=== PATIENT | male | born 1950 | race Caucasian/White ===

== ENCOUNTER 2018-12-18 20:30 | Outpatient (CLI) | payer MEDICARE, BC | END 2018-12-18 20:31 | disposition home or self-care (01) | LOC: SLEEPLAB 20:30 | PROVIDERS: ATTEND Internal Medicine Critical Care Medicine | DX: G47.33 Obstructive sleep apnea (adult) (pediatric) (principal); R53.83 Other fatigue; R06.83 Snoring; I48.91 Unspecified atrial fibrillation; I10 Essential (primary) hypertension | CPT/HCPCS: 95811 ==

== ENCOUNTER 2019-05-14 08:48 | Day surgery (SDC) | payer MEDICARE, BC ==
[2019-05-11 11:28] VITALS: BMI 39.5
[2019-05-14] MEDS ORDERED: ceFAZolin Sodium (SDC) 2 GM/100 ML BAG ONE (09:44)
[2019-05-14] MEDS ORDERED: PROPOFOL 200 MG/20 ML VIAL ONE (10:23)
[2019-05-14] MEDS ORDERED: Lidocaine 1% PF 5 ML VIAL ONE (10:23)
[2019-05-14] MEDS ORDERED: Ondansetron PF 4 MG/2 ML Vial ONE (10:23)
[2019-05-14] MEDS ORDERED: Glycopyrrolate 0.2 MG/ML 5 ML SYRINGE ONE (10:23)
[2019-05-14 10:31] LABS: #Basophils 0.1 thou/uL (0.0-0.2); #Eosinphils 0.4 thou/uL (0.0-0.7); #Lymphocytes 2.7 thou/uL (1.20-3.40); #Neutrophils 5.3 thou/uL (1.40-6.50); %Basophils 0.7 % (0.0-1.0); %Eosinophils 4.5 % (0.0-10.0); %Lymphocytes 28.4 % (21.0-51.0); %Monocytes 10.2 % (0.0-10.0); %Neutrophils 56.3 % (42.0-75.0); Hemoglobin 12.4 g/dL (14.0-18.0); Mean Corpuscular HGB CONC 32.4 g/dL (32.0-36.0); Mean Corpuscular Hemoglobin 27.8 pg (27.0-31.0); Mean Corpuscular Volume 85.9 fL (78.0-98.0); Mean Platelet Volume 8.6 fL (7.4-10.4); PTT 28.1 SEC (22.9-36.1); Platelet Count 304 thou/uL (130-400); RBC Distribution Width 14.1 % (11.5-14.5); Red Blood Cell (RBC) Count 4.45 mill/uL (4.70-6.10); White Blood Cell (WBC) Count 9.4 thou/uL (4.8-10.8)
[2019-05-14] MEDS ORDERED: Fentanyl 100 MCG/2 ML VIAL ONE (10:35)
[2019-05-14] MEDS ORDERED: Iothalamate Meglumine 60% 50 ML VIAL FS ONE (10:40)
[2019-05-14] MEDS ORDERED: Levofloxacin 500 mg/D5W 100 ml Premix Bag ONE (10:43)
[2019-05-14 10:46] LABS: Anion Gap 13 mmol/L (10-20); BUN (Urea Nitrogen) 21 mg/dL (8.4-25.7); Calc. Creatinine Clearance 73 mL/min (70-130); Calcium 9.6 mg/dL (7.8-10.44); Carbon Dioxide 21 mmol/L (23-31); Chloride 109 mmol/L (98-107); Estimated GFR-MDRD 43; Glucose 93 mg/dL (80-115); Potassium 4.5 mmol/L (3.5-5.1); Sodium 138 mmol/L (136-145)
--- NOTE | 2019-05-14 13:30 | OP ---
DATE OF PROCEDURE: 05/14/2019 PREOPERATIVE DIAGNOSIS: Bladder stones. POSTOPERATIVE DIAGNOSIS: Bladder stones. PROCEDURES PERFORMED: Cysto, laser lithotripsy of bladder stones and evacuation of stones. ANESTHESIA: General. ESTIMATED BLOOD LOSS: Less than 75 mL passing or stone fragments. DRAINS PLACED: A 20-Angolan Bustamante catheter, 20 mL in the balloon. FINDINGS: Two stones both over 2 cm in size. They were broken up with a holmium laser and the fragments were evacuated out. There was no evidence of stricture disease. He had a little bit of meatal stenosis to a 24-Angolan sheath that required gentle dilatation with Carroll sounds. He has large trilobar BPH and 1+ trabeculation. No bladder tumor or fistula. Ureteral orifices with normal efflux. DESCRIPTION OF PROCEDURE: After obtaining written and verbal consent from the patient, after receiving IV antibiotics, he was taken to the operating suite. He was placed in a supine position on the treatment table. PlexiPulses were placed in his lower extremities and turned on. He was given a general anesthetic and oral obturator intubation. He was placed in the dorsal lithotomy position and sterilely prepped and draped. Cystoscopy was performed with a 22-Angolan sheath. This was well lubricated and passed under direct vision through the male urethra into the urinary bladder with aid of a video camera and monitor and a 30-degree lens. The bladder was filled and emptied number of times, this was examined with both the 30 and 70-degree lens. Then, using a 30-degree lens, we brought in the holmium laser fiber and used this to fragment the stones into smaller and smaller pieces. We elliked out intermittently removing fragments from the debris field. Once there were just a few of these left that we were having a hard time getting out because of the size of his prostate, we removed the 22-Angolan sheath and gently dilated his urethra with Yolande sounds up to 28-Angolan and then passed a 24-Angolan resectoscope sheath with Bharathi obturator through the male urethra and into the bladder with [place] evacuator through this and we got all of the remaining fragments removed. On reinspection, there were no other fragments noted in the urinary bladder. The instruments were removed. A Bustamante catheter was placed. The balloon was inflated. It was hand irrigated with some sterile water and was clear with just light pink. At this point, the catheter was hooked to a drainage bag. He was taken out of the dorsal lithotomy position. He was awakened and extubated and taken by stretcher to recovery room. Job ID: [id number]
--- NOTE | 2019-05-15 22:56 | EKG ---
Test Reason : PREOP Blood Pressure : / mmHG Vent. Rate : 057 BPM Atrial Rate : 057 BPM P-R Int : 166 ms QRS Dur : 082 ms QT Int : 446 ms P-R-T Axes : 041 006 005 degrees QTc Int : 434 ms Sinus bradycardia Increased R/S ratio in V1, consider early transition or posterior infarct Abnormal ECG When compared with ECG of 15-OCT-2014 07:36, No significant change was found Confirmed by Nazario SHAH ([id number]) on 05/15/2019 10:55:49 PM Referred By: JUDITH Confirmed By:Nazario SHAH
[2019-05-17 16:09] LABS: Color Orange (.); Comment Note: (.); Uric Acid 100 % (.)
--- NOTE | 2019-05-31 05:23 | PQF ---
[facility] POST DISCHARGE CLINICAL DOCUMENTATION IMPROVEMENT CLARIFICATION FORM l Todays Date: 05/16/19 l Patients Name SAMIR SANCHES l l Admit Date 05/14/19 l Disch Date 05/14/19 Child Welfare Social Worker Name Megan Wheeler Email: [email or web address] Cell: [phone] To be completed by Child Welfare Social Worker: Present Clinical Indicators - Signs / Symptoms Results and Location in Medical Record [ ] Documentation of: [ ] [ ] Documentation of: [ ] [ ] Documentation of: [ ] [ ] Documentation of: [ ] [ ] Risks [ ] [ ] [ ] Treatment [ ] Need to verify exact size of bladder stones extracted. Documentation from Operative Note states that the bladder stone size is over 2cm, however, we need to know if its <2cm or >2cm in order to code the procedure for Cystolithopalaxy. [ ] [ ] To be completed by Physician: THERESA ABRAHAM The documentation in this patients record requires clarification to ensure coding compliance and accuracy. Check the appropriate box and include in your discharge summary. [ ] [ ] [ ] [ ] Please check this box if this does not apply to this patient [ ] Unable to determine [ ] Other diagnosis: Review the following information and exercise your independent professional judgment in responding to the clarification. Based upon the clinical findings, risk factors, and treatment, please clarify if you are treating one of the above probable or suspected diagnoses. Physician Signature: Date Time MTDD
== END 2019-05-14 14:35 | disposition home or self-care (01) ==
LOC: SDC 08:48
PROVIDERS: ATTEND Urology
PROC: 0TCB8ZZ Extirpation of Matter from Bladder, Via Natural or Artificial Opening Endoscopic (ICD-10-PCS; principal; 2019-05-14)
DX: N21.0 Calculus in bladder (principal); Z79.01 Long term (current) use of anticoagulants; I10 Essential (primary) hypertension; G47.30 Sleep apnea, unspecified; I49.9 Cardiac arrhythmia, unspecified
CPT/HCPCS: 80048; 82365; 85025; 85610; 85730; 88300; 93005; 93010; J0690; J1956; J2001; J2405; J2704; J3010

== ENCOUNTER 2021-05-20 10:00 | Outpatient (CLI) | payer OTHER ==
[~2021-05-20 10:00] MED LIST: Magnevist 469MG/ML 20 ML VIAL ONE
== END 2021-05-20 10:01 | disposition home or self-care (01) ==
LOC: SJX 10:00 → MRI 10:01
PROVIDERS: ATTEND Student in an Organized Health Care Education/Training Program
DX: H90.5 Unspecified sensorineural hearing loss (principal); I67.82 Cerebral ischemia
CPT/HCPCS: 70553; A9579